=== PATIENT | female | born 1940 | race Two or more races ===

== ENCOUNTER 2018-05-16 21:07 | Inpatient (IN) | payer MEDICARE, BC ==
[~2018-05-16] VITALS: Ht 165.1 cm; Wt 91.7 kg
[~2018-05-16 21:07] MED LIST: ANTIVERT25 MG ORAL; ATIVAN0.5 MG ORAL; DIOVAN40 MG ORAL; NORVASC2.5 MG ORAL; SYNTHROID112 MCG ORAL
--- NOTE | 2018-05-16 22:08 | Emergency Room Report ---
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 She checked her blood pressure there which was 160 systolic The dizziness has been associated with sitting up and movement over the past one day Initial symptoms were approximately 24 hours ago Patient had contacted her primary physician took a second Diovan which is her usual antihypertensive medication And upon arrival had a systolic blood pressure of 189 Patient continues to report dizziness with movement Denies any neck pain or photophobia denies any chest pain or palpitations Allergies: Coded Allergies: No Known Allergies (Unverified , 11/30/13) Patient History Past Medical History: see triage record Pertinent Family History: none Reviewed Nursing Documentation: PMH: Agreed; PSxH: Agreed Nursing Documentation-PMH Hx Hypertension: Yes Review of Systems All Other Systems: negative except mentioned in HPI Physical Exam Vital Signs Date Time Temp Pulse Resp B/P (MAP) Pulse Ox O2 Delivery O2 Flow Rate FiO2 05/16/18 21:23 98.1 81 18 189/87 92 Room Air 98.1 Sp02 EP Interpretation: reviewed, normal General Appearance: well appearing, no apparent distress Head: normocephalic, atraumatic Eyes: bilateral eye PERRL, bilateral eye EOMI ENT: hearing grossly normal, normal pharynx, TMs + canals normal, uvula midline Neck: full range of motion, supple, no meningismus, no bony tend Respiratory: lungs clear, normal breath sounds, no rhonchi, no respiratory distress, no retraction, no accessory muscle use Cardiovascular #1: normal peripheral pulses, regular rate, rhythm, no edema, no gallop, no JVD, no murmur Gastrointestinal: normal bowel sounds, non tender, soft, no mass, no organomegaly, non-distended, no guarding, no hernia, no pulsatile mass, no rebound Genitourinary: no CVA tenderness Musculoskeletal: normal inspection Neurologic: oriented x3, responsive, mother superior III-XII nml as tested, motor strength/ tone normal, sensory intact Psychiatric: mood/affect normal Skin: normal color, no rash, warm/dry, palpation normal Lymphatic: normal inspection, no adenopathy Medical Decision Making Diagnostic Impression: Primary Impression: Hypertensive crisis ER Course Patient is a fairly complex patient with multiple differential to consideration including but not limited to intracranial , neurological ,cardiac cardiopulmonary and vascular emergencies Patient initial CT head is negative Blood work is also appropriate Patient's blood pressure is improving Given the symptoms and the history and the examination Further evaluation for possible cerebellar pathology including carotid pathology also any significant be considered Patient received aspirin Does not meet thrombolytic criteria given that the timeline is over 24 hours And admitted for further inpatient care Labs Test 05/16/18 22:30 White Blood Count 7.1 K/UL (4.8-10.8) Red Blood Count 4.60 M/UL (4.20-5.40) Hemoglobin 13.5 G/DL (12.0-16.0) Hematocrit 39.4 % (37.0-47.0) Mean Corpuscular Volume 86 FL (80-99) Mean Corpuscular Hemoglobin 29.4 PG (27.0-31.0) Mean Corpuscular Hemoglobin Concent 34.2 G/DL (32.0-36.0) Red Cell Distribution Width 11.4 % (11.6-14.8) Platelet Count 137 K/UL (150-450) Mean Platelet Volume 7.1 FL (6.5-10.1) Neutrophils (%) (Auto) 51.6 % (45.0-75.0) Lymphocytes (%) (Auto) 33.3 % (20.0-45.0) Monocytes (%) (Auto) 10.9 % (1.0-10.0) Eosinophils (%) (Auto) 3.3 % (0.0-3.0) Basophils (%) (Auto) 0.9 % (0.0-2.0) Sodium Level 140 MMOL/L (136-145) Potassium Level 3.7 MMOL/L (3.5-5.1) Chloride Level 106 MMOL/L (98-107) Carbon Dioxide Level 27 MMOL/L (21-32) Anion Gap 7 mmol/L (5-15) Blood Urea Nitrogen 22 mg/dL (7-18) Creatinine 0.8 MG/DL (0.55-1.30) Estimat Glomerular Filtration Rate mL/min (>60) Glucose Level 109 MG/DL (74-106) Calcium Level 8.8 MG/DL (8.5-10.1) Total Bilirubin 0.6 MG/DL (0.2-1.0) Aspartate Amino Transf (AST/SGOT) 25 U/L (15-37) Alanine Aminotransferase (ALT/SGPT) 27 U/L (12-78) Alkaline Phosphatase 68 U/L (46-116) Total Creatine Kinase 74 U/L (26-308) Creatine Kinase MB 1.1 NG/ML (0.0-3.6) Creatine Kinase MB Relative Index 1.4 Troponin I 0.000 ng/mL (0.000-0.056) Total Protein 6.9 G/DL (6.4-8.2) Albumin 3.4 G/DL (3.4-5.0) Globulin 3.5 g/dL Albumin/Globulin Ratio 1.0 (1.0-2.7) Lipase 144 U/L (73-393) EKG Diagnostic Results Rate: normal Rhythm: NSR ST Segments: other - Right bundle-branch block Rhythm Strip Diag. Results EP Interpretation: yes Rate: 77 Rhythm: NSR, no PVC's, no ectopy Chest X-Ray Diagnostic Results Chest X-Ray Diagnostic Results : Chest X-Ray Ordered: Yes # of Views/Limited/Complete: 1 View Indication: Chest Pain EP Interpretation: Yes Interpretation: no consolidation, no effusion, no pneumothorax Impression: No acute disease Electronically Signed by: Felicitas Munoz DO CT/MRI/US Diagnostic Results CT/MRI/US Diagnostic Results : Impression CT head no acute disease Last Vital Signs Date Time Temp Pulse Resp B/P (MAP) Pulse Ox O2 Delivery O2 Flow Rate FiO2 05/16/18 21:23 98.1 81 18 189/87 92 Room Air 98.1 Status: improved Disposition: ADMITTED INPATIENT Condition: Serious Felicitas Munoz DO May 16, 2018 22:08
[2018-05-16 23:00] LABS: BASOPHILS % (AUTO) 0.9 % (0.0-2.0); EOSINOPHILS % (AUTO) 3.3 % (0.0-3.0); HEMATOCRIT 39.4 % (37.0-47.0); HEMOGLOBIN 13.5 G/DL (12.0-16.0); LYMPHOCYTES % (AUTO) 33.3 % (20.0-45.0); MEAN CORPUSCULAR VOLUME 86 FL (80-99); MONOCYTES % (AUTO) 10.9 % (1.0-10.0); NEUTROPHILS % (AUTO) 51.6 % (45.0-75.0); PLATELET COUNT 137 K/UL (150-450); RED CELL DISTRIBUTION WIDTH 11.4 % (11.6-14.8); WHITE BLOOD COUNT 7.1 K/UL (4.8-10.8)
[2018-05-16 23:04] LABS: ANION GAP 7 mmol/L (5-15); BLOOD UREA NITROGEN 22 mg/dL (7-18); CALCIUM 8.8 MG/DL (8.5-10.1); CARBON DIOXIDE 27 MMOL/L (21-32); CHLORIDE 106 MMOL/L (98-107); CREATININE 0.8 MG/DL (0.55-1.30); POTASSIUM 3.7 MMOL/L (3.5-5.1); SODIUM 140 MMOL/L (136-145)
[2018-05-16 23:13] VITALS: BP 181/68
[2018-05-16 23:19] LABS: ALANINE AMINOTRANSFERASE 27 U/L (12-78); ALBUMIN 3.4 G/DL (3.4-5.0); ALKALINE PHOSPHATASE 68 U/L (46-116); ASPARTATE AMINO TRANSFERASE 25 U/L (15-37); BILIRUBIN,TOTAL 0.6 MG/DL (0.2-1.0); CKMB 1.1 NG/ML (0.0-3.6); CREATINE KINASE 74 U/L (26-308)
[2018-05-17 01:30] VITALS: BP 140/58
[2018-05-17 04:00] VITALS: BP 147/82
[2018-05-17 08:00] VITALS: BP 134/57
[2018-05-17 08:53] LABS: BASOPHILS % (AUTO) 0.9 % (0.0-2.0); EOSINOPHILS % (AUTO) 4.2 % (0.0-3.0); HEMATOCRIT 42.9 % (37.0-47.0); HEMOGLOBIN 14.4 G/DL (12.0-16.0); LYMPHOCYTES % (AUTO) 38.6 % (20.0-45.0); MEAN CORPUSCULAR VOLUME 87 FL (80-99); MONOCYTES % (AUTO) 9.6 % (1.0-10.0); NEUTROPHILS % (AUTO) 46.6 % (45.0-75.0); PLATELET COUNT 173 K/UL (150-450); RED BLOOD COUNT 4.91 M/UL (4.20-5.40); RED CELL DISTRIBUTION WIDTH 11.5 % (11.6-14.8); WHITE BLOOD COUNT 6.5 K/UL (4.8-10.8)
[2018-05-17 09:25] LABS: ANION GAP 10 mmol/L (5-15); BLOOD UREA NITROGEN 17 mg/dL (7-18); CALCIUM 9.1 MG/DL (8.5-10.1); CARBON DIOXIDE 26 MMOL/L (21-32); CHLORIDE 104 MMOL/L (98-107); CHOLESTEROL 192 MG/DL (< 200); CREATININE 0.8 MG/DL (0.55-1.30); HDL CHOLESTEROL 62 MG/DL (40-60); POTASSIUM 3.8 MMOL/L (3.5-5.1); SODIUM 139 MMOL/L (136-145); TRIGLYCERIDES 78 MG/DL (30-150)
--- NOTE | 2018-05-17 10:17 | Diagnostic Imaging Report ---
Indication: Headache Technique: Contiguous 5 mm thick transaxial imaging of the head obtained in a Siemens Sensation [address] scanner. Soft tissue and bone windows generated. Automatic Exposure Control was utilized. Total Dose length Product (DLP): 1435.[address] Dose Index Volume (CTDIvol): 70.38 mGy Comparison: none Findings: The size and configuration of the cortical sulci, basal cisterns, and ventricles are within normal limits for age. There is no mass effect, midline shift, or edema identified. There is no evidence of acute hemorrhage or abnormal intra-axial or extra-axial fluid collections. The bones and soft tissues are unremarkable. Impression: No mass effect, edema or acute bleed. [facility] has communicated the preliminary results to the Emergency Department. Their findings are largely concordant with this report. The CT scanner at [facility] is accredited by the [employer] and the scans are performed using dose optimization techniques as appropriate to a performed exam including Automatic Exposure control.
--- NOTE | 2018-05-17 11:00 | Diagnostic Imaging Report ---
Indication: 77-year-old female presenting with dizziness/vertigo, headache with history of hypertension. Technique: The head was imaged in a 1.5 Natalya magnet. Sequences obtained include sagittal and axial T1 FLAIR, axial T2 fast spin echo with fat saturation, axial T2 FLAIR, diffusion and ADC map. Comparison: CT head 05/16/2018 Findings: The size, contour, and configuration of the sulci, ventricles, and basal cisterns appear normal. Romero-white differentiation is normal for age. There is no restricted diffusion. There is no mass effect, midline shift, edema, or hemorrhage. There are no abnormal extra-axial or intra-axial fluid collections. The corpus callosum is unremarkable. The brainstem and cerebellum are unremarkable. The sella is unremarkable. Bone marrow signal within the visualized osseous structures appears age appropriate and unremarkable otherwise. Impression: No mass effect, acute CVA, edema or hemorrhage.
--- NOTE | 2018-05-17 11:49 | Diagnostic Imaging Report ---
Indication: Chest pain Comparison: None A single view chest radiograph was obtained. Findings: No definite infiltrate or pulmonary vascular congestion identified.. There is likely mild basilar atelectasis. The heart is enlarged. The aorta is mildly enlarged consistent with atherosclerotic vascular disease. The bones are osteopenic. Impression: No acute disease
[2018-05-17 12:00] VITALS: BP 138/72
[2018-05-17] MEDS ORDERED: NORVASC5 MG ORAL (12:30)
--- NOTE | 2018-05-17 16:03 | Cardiology Report ---
APPROVED REPORT EXAM: Two-dimensional and M-mode echocardiogram with Doppler and color Doppler. INDICATION ANGINA PECTORIS M-Mode DIMENSIONS IVSd1.2 (0.7-1.1cm)Left Atrium (MM)3.5 (1.6-4.0cm) LVDd3.2 (3.5-5.6cm)Aortic Root3.8 (2.0-3.7cm) PWd1.4 (0.7-1.1cm)Aortic Cusp Exc.2.5 (1.5-2.0cm) IVSs1.9 cm LVDs2.1 (2.5-4.0cm) PWs1.5 cm Technically difficult study due to poor acoustical windows . Normal left ventricular chamber size, systolic function and wall motion to extent visualized. Left ventricular ejection fraction estimated to be 55-60 %. Mild left ventricular hypertrophy by 2-D. No evidence of pericardial effusion. All other cardiac chamber sizes are within normal limits. Focal aortic valve sclerosis with adequate cusp excursion. Thickened mitral valve leaflets with normal excursion. Mitral annulus and aortic root calcification. Pulmonic valve not well visualized. Normal tricuspid valve structure. IVC at normal size with physiologic collapse. A color flow and spectral Doppler study was performed and revealed: Mild aortic regurgitation. Mild mitral regurgitation. Mitral diastolic velocities suggest reduced left ventricular relaxation c/w mild LV diastolic dysfunction (Grade I ). Trace tricuspid regurgitation. Tricuspid systolic velocities suggests peak right ventricular systolic pressure of 18 mmHg No Pulmonic regurgitation present.
--- NOTE | 2018-05-17 16:18 | Cardiology Report ---
APPROVED REPORT EKG Measurement Heart [id number] VT 200P22 [id number] Normal sinus rhythm Possible Left atrial enlargement Right bundle branch block Abnormal ECG
--- NOTE | 2018-05-17 16:45 | History and Physical Report ---
DATE OF ADMISSION: 05/16/2018 CHIEF COMPLAINT: Vertigo. HISTORY OF PRESENT ILLNESS: The patient is a pleasant, 77-year-old female. She has a history of chronic vertigo for many years. She has an extensive workup, has been seen by multiple specialists, but she continues to have intermittent and sometimes very frequent symptoms. According to the patient, she was well. She apparently has been very stressed. 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 She was brought to the emergency room. On evaluation there, her vital signs were significant for blood pressure of 189/87, her pulse is 81. She had a CT scan of the head that was negative. In light of persistent vertigo and dizziness. She is now admitted for further evaluation and care. PAST MEDICAL HISTORY: As above. She has a history of hypertension, hyperlipidemia, history of thyroidectomy. CURRENT MEDICATIONS: Reconciled and reviewed. ALLERGIES: None. FAMILY HISTORY: None. SOCIAL HISTORY: Negative for tobacco, ethanol, or drugs. REVIEW OF SYSTEMS: GENERAL: No fever or chills. HEENT: No headaches or visual changes. CARDIOPULMONARY: No chest pain or shortness of breath. No heart palpitations. GASTROINTESTINAL: No nausea or vomiting. GENITOURINARY: No urgency or frequency. MUSCULOSKELETAL: No joint pain or swelling. NEUROLOGIC: No evidence of seizures. PHYSICAL EXAMINATION: VITAL SIGNS: Temperature 98 degrees, pulse 64, respirations 15, blood pressure 181/68. GENERAL: The patient is well developed, in no apparent distress. HEART: Regular rate and rhythm. LUNGS: Clear. ABDOMEN: Soft, nontender, and nondistended. EXTREMITIES: Without clubbing, cyanosis, or edema. NEUROLOGIC: Cranial nerves II through XII are intact. Motor strength is 5/5. Sensation is intact bilaterally. Reflexes are 2+. [id number] is normal. PERTINENT DATA: EKG showed right bundle-branch block. Troponin was negative. Potassium 3.7. TSH is pending. White count was 7. Per report, chest x-ray was negative. ASSESSMENT: This is a pleasant female with no complaints of vertigo and uncontrolled hypertension, currently improved. PLAN: Continue to monitor blood pressure. PT and OT evaluations. MRI of the brain. If blood pressure is better and the patient's vertigo symptoms are improved, she can be discharged later today. Plan of care was discussed with the patient as well as her family at the bedside. Mamadou Puri M.D. DR: ZECHARIAH JOB#: [id number] CC:
--- NOTE | 2018-05-18 07:54 | Discharge Summary ---
Discharge Summary Discharge Summary _ DATE OF ADMISSION: 05/16/2018 DATE OF DISCHARGE: 05/17/2018 BRIEF HOSPITAL COURSE: Patient is a 77-year-old female, with history of chronic vertigo for many years. She had extensive workup and has been seen by multiple specialists, however, she continues to have intermittent and sometimes very frequent symptoms. 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 She has medical history significant for hypertension, hyperlipidemia and history of thyroidectomy. She was brought to the emergency room and on evaluation, blood pressure was 189/ 87, pulse rate 81. Head CT was negative. EKG was in normal sinus rhythm with right bundle branch block. Chest x-ray with no acute disease. She had persistent vertigo and dizziness and was admitted for further evaluation and care due to uncontrolled hypertension and dizziness. She was admitted to telemetry. Blood pressure was monitored. She was given irbesartan 37.5 mg daily as valsartan is non-formulary. TSH was normal. She was continued on levothyroxine 112 g every morning. She was given Lipitor 10 mg daily at bedtime. Echocardiogram done showed left ventricular ejection fraction 55-60%. Normal left ventricular size, function and wall motion. There was mild aortic regurgitation and mild mitral regurgitation. No evidence of pericardial effusion. Troponins were negative x2. She had an MRI of the brain, there was no mass effect, no acute CVA, edema or hemorrhage seen. She was ordered PT and OT. Blood pressure improved and MRI of the brain was negative. Due to rapid improvement of symptoms and negative work-up, she was eventually discharged home. FINAL DIAGNOSES: Uncontrolled hypertension Vertigo Hypothyroidism Hyperlipidemia DISPOSITION: Patient was discharged home. DISCHARGE MEDICATIONS: Refer to Discharge Medication List. DISCHARGE INSTRUCTIONS: Follow up within a week. I have been assigned to dictate discharge summary on this account, and I was not involved in the patient's management. Mila Matthew NP May 18, 2018 07:54
== END 2018-05-17 13:10 | disposition home or self-care (01) | DRG 305 ==
LOC: EMR 22:00 → 2E 23:44 → EDBEDREQ 05-17 00:05 → 2E 05-17 02:48
DX: I16.9 Hypertensive crisis, unspecified (principal); R42 Dizziness and giddiness; E78.5 Hyperlipidemia, unspecified; I45.10 Unspecified right bundle-branch block; I35.1 Nonrheumatic aortic (valve) insufficiency; I34.0 Nonrheumatic mitral (valve) insufficiency; E03.9 Hypothyroidism, unspecified
CPT/HCPCS: 36415; 70450; 70551; 71045; 80048; 80053; 80061; 82550; 82553; 83690; 84443; 84484; 85025; 93005; 93306